=== PATIENT | male | born 1960 | race Caucasian/White ===

== ENCOUNTER 2017-07-09 15:24 | Inpatient (IN) | payer OTHER ==
[~2017-07-09] VITALS: Ht 200.7 cm; Wt 132.4 kg
[2017-07-09 16:56] LABS: BASOPHIL % 0.1 % (0-2); PLATELET COUNT 177 x10^3mcL (130-400); RED CELL DISTRIBUTION WIDTH 13.2 % (11.5-14.5)
[2017-07-09 17:03] LABS: CALCIUM 8.8 mg/dL (8.5-10.1); CHLORIDE SERUM 106 mmol/L (98-107); CREATININE SERUM 1.2 mg/dL (0.7-1.3); GFR1 > 60 mL/min; GLUCOSE SERUM 86 mg/dL (74-106); POTASSIUM SERUM 3.5 mmol/L (3.5-5.1); SODIUM SERUM 142 mmol/L (136-145)
[2017-07-09 17:06] LABS: MAGNESIUM 1.9 mg/dL (1.8-2.4); PHOSPHOROUS 2.7 mg/dL (2.5-4.9)
[2017-07-09 17:40] LABS: CK-MB 6.1 ng/mL (0-3.6)
[2017-07-09] MEDS ORDERED: EPANED1 MG/ML (19:09)
[2017-07-09] MEDS ORDERED: CLONIDINE0.2 M1 (19:09)
[2017-07-09 20:05] LABS: CHOLESTEROL/HDL RATIO 3.8; T3 TOTAL 1.15 ng/mL
[2017-07-09 20:12] LABS: FREE T4 1.02 ng/dL (0.76-1.46); T4(THYROXINE) 8.5 ug/dL (4.7-13.3)
[2017-07-09 22:06] VITALS: BP 167/91
[2017-07-09 23:56] VITALS: BP 130/65
[2017-07-10] VITALS (7 sets, daily range): BP systolic 114–168; BP diastolic 46–88
[2017-07-10 09:26] LABS: microscopic required? NO
[2017-07-10 09:42] LABS: urine erythrocyte NEGATIVE (NEGATIVE)
[2017-07-10 13:17] LABS: AMPHETAMINE QUAL UR NONE DETECTED (NEG <=1000)
[2017-07-11 06:08] LABS: BASOPHIL % 0.2 % (0-2); PLATELET COUNT 166 x10^3mcL (130-400); RED CELL DISTRIBUTION WIDTH 13.5 % (11.5-14.5)
[2017-07-11 06:55] LABS: CALCIUM 8.3 mg/dL (8.5-10.1); CARBON DIOXIDE 26.8 mmol/L (21-32); CHLORIDE SERUM 109 mmol/L (98-107); CREATININE SERUM 1.1 mg/dL (0.7-1.3); GFR1 > 60 mL/min; GLUCOSE SERUM 93 mg/dL (74-106); POTASSIUM SERUM 3.8 mmol/L (3.5-5.1); SODIUM SERUM 143 mmol/L (136-145)
[2017-07-11 07:26] VITALS: BP 147/74
[2017-07-11 09:18] VITALS: BP 124/64
[2017-07-11 16:46] VITALS: BP 142/83
[2017-07-11 21:17] VITALS: BP 146/76
[2017-07-12 05:49] VITALS: BP 160/83
[2017-07-12] MEDS ORDERED: MUCINEX600 MG PO (05:56)
[2017-07-12] MEDS ORDERED: ZOFI IV (05:56)
[2017-07-12] MEDS ORDERED: MECLIZINE HYDRO25 M1 PO (05:56)
[2017-07-12] MEDS ORDERED: AUG500 PO (05:56)
[2017-07-12] MEDS ORDERED: LAC PO (05:56)
[2017-07-12] MEDS ORDERED: DEC4I PO (05:56)
[2017-07-12 06:11] LABS: CALCIUM 8.4 mg/dL (8.5-10.1); CARBON DIOXIDE 28.3 mmol/L (21-32); CHLORIDE SERUM 109 mmol/L (98-107); CREATININE SERUM 1.2 mg/dL (0.7-1.3); GFR1 > 60 mL/min; GLUCOSE SERUM 86 mg/dL (74-106); POTASSIUM SERUM 4.1 mmol/L (3.5-5.1); SODIUM SERUM 143 mmol/L (136-145)
[2017-07-12] MEDS ORDERED: AMOXICILLIN500 M1 PO (07:42)
[2017-07-12] MEDS ORDERED: VERAMYST27.5 MCG/1 NS (07:42)
[2017-07-12 10:02] VITALS: BP 143/67
[2017-07-12 12:55] VITALS: BP 143/67
== END 2017-07-12 13:54 | disposition home or self-care (01) | DRG 153 ==
LOC: ED 15:24 → MU 19:01 → DU 19:01 → MU 07-11 06:44
PROVIDERS: Emergency Medicine; ADMIT Family Medicine
DX: H66.91 Otitis media, unspecified, right ear (principal); H81.10 Benign paroxysmal vertigo, unspecified ear; I10 Essential (primary) hypertension; E78.1 Pure hyperglyceridemia; Z68.31 Body mass index [BMI] 31.0-31.9, adult
CPT/HCPCS: 83880; 84439; J0295; J1100; J2060; J2405; J7030; J8597; Q0092